=== PATIENT | male | born 1980 | race Caucasian/White ===

== ENCOUNTER 2021-04-21 19:07 | Emergency (ER) | payer BC, OTHER ==
[~2021-04-21] VITALS: Ht 190.5 cm; Wt 106.0 kg
[~2021-04-21 19:07] MED LIST: NORCO10T PO; ZOF4T PO
[2021-04-21 19:15] VITALS: BP 127/91
[2021-04-21] MEDS ORDERED: TETanus/Pertussis (Acell)/Diphther VAC/PF (Tdap-Adult) 0.5ml syringe IMVAC ONE (20:20)
[2021-04-21] MEDS ORDERED: LIDOcaine 1% W/epiNEPHrine 1:200,000 10ml vial IJ ONE (20:20)
[2021-04-21] MEDS ORDERED: bacitracin ointment unit dose packet TP STA (20:39)
[2021-04-21] MEDS ORDERED: bacitracin 15gm ointment TP STA (20:41)
== END 2021-04-21 20:49 | disposition home or self-care (01) ==
LOC: ER 19:08
DX: S51.812A Laceration without foreign body of left forearm, initial encounter (principal); Z20.3 Contact with and (suspected) exposure to rabies; Z79.899 Other long term (current) drug therapy; X58.XXXA Exposure to other specified factors, initial encounter; Y93.89 Activity, other specified; Y92.89 Other specified places as the place of occurrence of the external cause; Y99.8 Other external cause status
CPT/HCPCS: 12002; 90471; 90715; 99283